=== PATIENT | male | born 1995 | race American Indian/Alaskan Native ===

== ENCOUNTER 2020-10-10 03:25 | Emergency (ER) | payer SELFPAY ==
[2020-10-10 03:38] VITALS: BP 126/89
--- NOTE | 2020-10-10 04:35 | Emergency Department Report ---
ED Upper Extremity Inj HPI - General Chief Complaint: Extremity Injury, Upper Stated Complaint: FINGER PAIN Time Seen by Provider: 10/10/20 04:32 Source: patient Mode of arrival: Ambulatory Limitations: No Limitations - History of Present Illness Initial Comments: 25-year-old male presenting department complaining of right thumb pain secondary to accidentally slamming it in a car door just prior to arrival reports dull throbbing pain since the onset was worsened with with range of motion and palpation. No numbness or tingling is appreciated no pre-existing injury. He did notice some discoloration to the base of the of the thumbnail as well. MD Complaint: Injury to:: right (thumb) Other Extremity Injury: Fingers: Right Handedness: right Place: home Improves With: none Context: direct blow, crush Associated Symptoms: denies other symptoms ED Review of Systems ROS: Stated complaint: FINGER PAIN Other details as noted in HPI Comment: All other systems reviewed and negative ED Past Medical Hx - Past Medical History Previous Medical History?: No - Surgical History Past Surgical History?: No - Social History Smoking Status: Former Smoker Substance Use Type: None ED Physical Exam - General Limitations: No Limitations General appearance: alert, in no apparent distress - Head Head exam: Present: atraumatic, normocephalic - Eye Eye exam: Present: normal appearance - ENT ENT exam: Present: mucous membranes moist - Neck Neck exam: Present: normal inspection - Respiratory Respiratory exam: Present: normal lung sounds bilaterally. Absent: respiratory distress - Cardiovascular Cardiovascular Exam: Present: regular rate, normal rhythm. Absent: systolic murmur, diastolic murmur, rubs, gallop - GI/Abdominal GI/Abdominal exam: Present: soft, normal bowel sounds - Rectal Rectal exam: Present: deferred - Extremities Exam Extremities exam: Present: normal inspection, full ROM, normal capillary refill - Expanded Upper Extremity Exam Right Hand Wrist exam: Present: tenderness, swelling, ecchymosis Hand L/R Back: 1 - Second ungual hematoma to this region with some swelling and ecchymosis to this area of the thumb as well - Back Exam Back exam: Present: normal inspection. Absent: CVA tenderness (R), CVA tenderness (L) - Neurological Exam Neurological exam: Present: alert, oriented X3, CN II-XII intact, normal gait - Psychiatric Psychiatric exam: Present: normal affect, normal mood - Skin Skin exam: Present: warm, dry, intact, normal color. Absent: rash ED Course Vital Signs 10/10/20 03:36 Temperature 97.6 F Pulse Rate 67 Respiratory 18 Rate Blood Pressure 126/89 O2 Sat by Pulse 95 Oximetry ED Medical Decision Making - Radiology Data Radiology results: report reviewed [facility] [address] [place] [address] XRay Report Signed Patient: ALEXANDRA SARKAR JR MR#: [id number] : 1995 Acct:[id number] Age/Sex: 25 / M ADM Date: 10/10/20 Loc: ED Attending Dr: Ordering Physician: KATHY STAFFORD Date of Service: 10/10/20 Procedure(s): XR finger(s) 2+V RT Accession Number(s): [id number] cc: KATHY STAFFORD Fluoro Time In Minutes: Right hand-3 views INDICATION: slammed thumb in door. COMPARISON: None. IMPRESSION: Swelling about the thumb base with no acute fracture or malalignment. No significant DJD. Signer Name: Darrell Gale MD Signed: 10/10/2020 5:35 AM Workstation Name: [id number] Transcribed By: JW Dictated By: Darrell Gale MD Electronically Authenticated By: Darrell Gale MD Signed Date/Time: 10/10/20534 DD/ 4 TD/TT: Critical care attestation.: If time is entered above; I have spent that time in minutes in the direct care of this critically ill patient, excluding procedure time. ED Disposition Clinical Impression: Subungual hematoma of finger, Crushing injury of finger of right hand Disposition: - TO HOME OR SELFCARE Is pt being admited?: No Does the pt Need Aspirin: No Condition: Stable Instructions: Subungual Hematoma, [id number], Crush Injury of the Hand, How to Use Cold Therapy
--- NOTE | 2020-10-10 05:40 | XRay Report ---
Right hand-3 views INDICATION: slammed thumb in door. COMPARISON: None. IMPRESSION: Swelling about the thumb base with no acute fracture or malalignment. No significant RABIA Thakkar Signer Name: Darrell Gale MD Signed: 10/10/2020 5:35 AM Workstation Name: [id number]
== END 2020-10-10 06:30 | disposition home or self-care (01) ==
LOC: ED 03:25
DX: S60.10XA Contusion of unspecified finger with damage to nail, initial encounter (principal); W20.8XXA Other cause of strike by thrown, projected or falling object, initial encounter; Y93.89 Activity, other specified; Y92.89 Other specified places as the place of occurrence of the external cause; Y99.8 Other external cause status
CPT/HCPCS: 99283